=== PATIENT | male | born 1975 | race African-American/Black ===

== ENCOUNTER 2016-08-24 15:50 | Emergency (ER) | payer BC ==
[~2016-08-24] VITALS: Ht 172.7 cm; Wt 80.7 kg
[~2016-08-24 15:50] MED LIST: ASPI81TA44 PO; METF10002 PO; SITA50TA PO; no home meds
[2016-08-24] MEDS ORDERED: FAMOTIDINE 20 MG/2 ML VIAL IVP ONE (16:15)
[2016-08-24] MEDS ORDERED: IV NORMAL SALINE 1,000ML 1,000 ML IV ONE ×2 (16:15→17:00)
[2016-08-24 16:22] LABS: BASO % 1 % (0-3); EOS # 0.1 x10^3/uL (0.0-0.7); EOS % 1 % (0-3); HEMATOCRIT 48.8 % (39.0-53.0); HEMOGLOBIN 15.5 g/dL (13.0-17.5); LYMPH # 1.8 x10^3/uL (1.0-4.8); LYMPH % 33 % (24-48); MEAN CORPUSCULAR HEMOGLOBIN 24 pg (25-35); MEAN CORPUSCULAR HGB CONC 32 g/dL (31-37); MEAN CORPUSCULAR VOLUME 75 fL (79-100); MONO # 0.7 x10^3/uL (0.0-1.1); MONO % 13 % (0-9); NEUT # 2.9 x10^3uL (1.8-7.7); NEUT % 53 % (31-73); PLATELET COUNT 163 x10^3/uL (140-400); RED BLOOD COUNT 6.54 x10^6/uL (4.30-5.70); RED CELL DISTRIBUTION WIDTH 14.3 % (11.5-14.5); WHITE BLOOD COUNT 5.5 x10^3/uL (4.0-11.0)
--- NOTE | 2016-08-24 16:25 | EKG ---
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
[2016-08-24 16:35] LABS: CALCIUM 9.8 mg/dL (8.5-10.1); GFR 98.7; POTASSIUM 4.1 mmol/L (3.5-5.1); TOTAL BILIRUBIN 0.6 mg/dL (0.2-1.0); TOTAL PROTEIN 8.2 g/dL (6.4-8.2)
--- NOTE | 2016-08-24 16:35 | RAD ---
EXAM: CHEST 1 VIEW History: Chest pain, wheezing COMPARISON: 04/17/2016 TECHNIQUE: Single portable radiograph of the chest FINDINGS: The cardiac silhouette is unremarkable. The lungs are clear bilaterally. The costophrenic sulci are clear and well demarcated. IMPRESSION: No radiographic evidence of an acute cardiopulmonary process.
[2016-08-24 16:38] LABS: AMPHETAMINE/METHAMPHETAMINE NEG (NEG); BARBITURATES NEG (NEG); BENZODIAZEPINES NEG (NEG); CANNABINOIDS NEG (NEG); COCAINE NEG (NEG); METHADONE NEG (NEG); OPIATES NEG (NEG); PHENCYCLIDINE NEG (NEG)
--- NOTE | 2016-08-24 16:59 | ED.ADGEN ---
Past History Past Medical History: Diabetes Past Surgical History: No Surgical History Alcohol Use: None Drug Use: None Adult General Chief Complaint Chief Complaint epigastric pain [facility] HPI Patient is a 41-year-old -Kitt[place] male with history of diabetes and hypertension who presents with persistent epigastric pain 3 days. Patient was been evaluated I his PCP for possible reflux and was noted to have abnormal EKG which showed LVH, early re-pole with sinus tachycardia. Patient was referred to ED for continued workup. Patient reports some mild nausea and early satiety. He denies chest pain, chest tightness, radiating pain, shortness of breath or sweats. He states his upper abdominal symptoms are worse with certain meals. He is noted to be diabetic, but has been off his medications for the past 2 days due to stomach upset. Denies black stools dark tarry stools, constipation or diarrhea. No prior abdominal surgeries. Patient was recently admitted to the hospital earlier this evening for treatment of early DKA due to medical noncompliance. Patient denies drugs or routine alcohol. Review of Systems Review of Systems ROS as per HPI. Current Medications Current Medications Current Medications Medications (Trade) Dose Ordered Sig/Natalio Start Time Stop Time Status Last Admin Dose Admin Famotidine (Pepcid) 20 mg 1X ONCE 08/24/16 16:15 08/24/16 16:16 DC 08/24/16 16:15 20 MG Sodium Chloride 1,000 ml @ 1,000 mls/hr 1X ONCE 08/24/16 17:00 08/24/16 17:59 Allergies Allergies Allergies Coded Allergies Type Severity Reaction Last Updated Verified No Known Drug Allergies 08/24/16 No Physical Exam Physical Exam Constitutional: Well developed, well nourished, no acute distress, non-toxic appearance. HENT: Normocephalic, atraumatic, bilateral external ears normal, oropharynx moist, no oral exudates, nose normal. Eyes: PERRL. Neck: Normal range of motion. Cardiovascular:, Regular rhythm. Lungs & Thorax: Bilateral breath sounds clear to auscultation. Abdomen: Bowel sounds normal, soft, mid epigastric pain, tenderness. Skin: Warm, dry. Back: No tenderness, no CVA tenderness. Extremities: No tenderness. Neurologic: Alert and oriented X 3, normal motor function, normal sensory function, no focal deficits noted. Psychologic: Affect normal, judgement normal, mood normal. Current Patient Data Vital Signs Vital Signs Date Time Temp Pulse Resp B/P (MAP) Pulse Ox O2 Delivery O2 Flow Rate FiO2 08/24/16 15:57 98.4 123 18 99 Room Air Lab Results Laboratory Tests Test 08/24/16 16:10 08/24/16 16:22 White Blood Count 5.5 x10^3/uL (4.0-11.0) Red Blood Count 6.54 x10^6/uL (4.30-5.70) H Hemoglobin 15.5 g/dL (13.0-17.5) Hematocrit 48.8 % (39.0-53.0) Mean Corpuscular Volume 75 fL (79-100) L Mean Corpuscular Hemoglobin 24 pg (25-35) L Mean Corpuscular Hemoglobin Concent 32 g/dL (31-37) Red Cell Distribution Width 14.3 % (11.5-14.5) Platelet Count 163 x10^3/uL (140-400) Neutrophils (%) (Auto) 53 % (31-73) Lymphocytes (%) (Auto) 33 % (24-48) Monocytes (%) (Auto) 13 % (0-9) H Eosinophils (%) (Auto) 1 % (0-3) Basophils (%) (Auto) 1 % (0-3) Neutrophils # (Auto) 2.9 x10^3uL (1.8-7.7) Lymphocytes # (Auto) 1.8 x10^3/uL (1.0-4.8) Monocytes # (Auto) 0.7 x10^3/uL (0.0-1.1) Eosinophils # (Auto) 0.1 x10^3/uL (0.0-0.7) Basophils # (Auto) 0.0 x10^3/uL (0.0-0.2) D-Dimer (Shameka) 0.24 mg/L (0.00-0.50) Sodium Level 138 mmol/L (136-145) Potassium Level 4.1 mmol/L (3.5-5.1) Chloride Level 100 mmol/L (98-107) Carbon Dioxide Level 23 mmol/L (21-32) Anion Gap 15 (6-14) H Blood Urea Nitrogen 10 mg/dL (8-26) Creatinine 1.0 mg/dL (0.7-1.3) Estimated GFR (Cockcroft-Gault) 98.7 BUN/Creatinine Ratio 10 (6-20) Glucose Level 308 mg/dL (70-99) H Calcium Level 9.8 mg/dL (8.5-10.1) Total Bilirubin 0.6 mg/dL (0.2-1.0) Aspartate Amino Transferase (AST) 15 U/L (15-37) Alanine Aminotransferase (ALT) 28 U/L (16-63) Alkaline Phosphatase 116 U/L (46-116) Creatine Kinase 55 U/L (39-308) Troponin I Quantitative < 0.017 ng/mL (0-0.055) Total Protein 8.2 g/dL (6.4-8.2) Albumin 4.0 g/dL (3.4-5.0) Albumin/Globulin Ratio 1.0 (1.0-1.7) Lipase 105 U/L (73-393) Urine Opiates Screen Neg (NEG) Urine Methadone Screen Neg (NEG) Urine Barbiturates Neg (NEG) Urine Phencyclidine Screen Neg (NEG) Urine Amphetamine/Methamphetamine Neg (NEG) Urine Benzodiazepines Screen Neg (NEG) Urine Cocaine Screen Neg (NEG) Urine Cannabinoids Screen Neg (NEG) Urine Ethyl Alcohol Neg (NEG) EKG EKG [EKG: Sinus tach, rate 118, LVH with early re-pole pattern. No acute ST-T wave changes. QTC 459] Radiology/Procedures Radiology/Procedures [Chest x-ray: No acute cardiopulmonary disease] Course & Med Decision Making Course & Med Decision Making Pertinent Labs and Imaging studies reviewed. (See chart for details) [Nondescript abdominal pain and hyperglycemia. Patient's sinus tach on EKG likely secondary to dehydration. Troponin is negative despite 3 days of abdominal discomfort. Patient denies any exertional symptoms. Feels much improved with fluids and Pepcid in the emergency department. Admission offered her further cardiac evaluation due to multiple risk factors. She declines admission at this time due to family needs at home, but agrees to follow-up with his PCP. I think this is a reasonable plan given his relatively benign evaluation in the emergency department. Recommend patient starting an antacid and improved or better Compliance with PCP follow-up next week. He is instructed to return to the emergency department in the meantime should, should he develop new or worsening symptoms.] Final Impression Final Impression [1. Abdominal discomfort 2. Hyperglycemia] Problems: Dragon Disclaimer Dragon Disclaimer This electronic medical record was generated, in whole or in part, using a voice recognition dictation system. FLAQUITA GU DO August 24, 2016 16:59
[2016-08-24 17:33] VITALS: BP 146/102
== END 2016-08-24 17:43 | disposition home or self-care (01) ==
LOC: ER 15:50
DX: R10.13 Epigastric pain (principal); E11.65 Type 2 diabetes mellitus with hyperglycemia
CPT/HCPCS: 36415; 71010; 80053; 80305; 82550; 83690; 84484; 85027; 85379; 93005; 96361; 96374; 99285; S0028; G0481; J7030

== ENCOUNTER 2016-08-30 19:38 | Inpatient (IN) | payer BC ==
[~2016-08-30] VITALS: Ht 172.7 cm; Wt 82.4 kg
--- NOTE | 2016-08-30 19:56 | ED.ADGEN ---
Past History Past Medical History: Diabetes Past Surgical History: No Surgical History Alcohol Use: None Drug Use: None Adult General Chief Complaint Chief Complaint Nausea HPI HPI Patient is a 41 year old -Af[place] Afghan male who presents with epigastric discomfort and nausea. He states his been going on for several days and he sees primary care physician is referred him to a GI doctor. States he had an x-ray done and was here recently for elevated heart rate got IV fluids. He states yesterday felt okay but today he felt nauseated but denied any abdominal pain, chest pain shortness of breath. He states he really hasn't ate or drank anything all day today. He did take his metformin and glyburide. He's not been checking his sugars. He denies any fevers chills shortness of breath. Review of Systems Review of Systems Constitutional: Denies fever or chills [] Eyes: Denies change in visual acuity, redness, or eye pain [] HENT: Denies nasal congestion or sore throat [] Respiratory: Denies cough or shortness of breath [] Cardiovascular: No additional information not addressed in HPI [] GI: Denies abdominal pain, vomiting, bloody stools or diarrhea , positive for nausea : Denies dysuria or hematuria [] Musculoskeletal: Denies back pain or joint pain [] Integument: Denies rash or skin lesions [] Neurologic: Denies headache, focal weakness or sensory changes [] Endocrine: Denies polyuria or polydipsia [] Current Medications Current Medications Current Medications Medications (Trade) Dose Ordered Sig/Natalio Start Time Stop Time Status Last Admin Dose Admin Magnesium Sulfate 50 ml @ 25 mls/hr 1X ONCE 08/30/16 22:15 08/31/16 00:14 DC 08/30/16 21:51 25 MLS/HR Ondansetron HCl (Zofran) 4 mg PRN Q4HRS PRN 08/31/16 00:45 09/01/16 00:44 UNV Potassium Chloride (Klor-Con) 40 meq 1X ONCE 08/30/16 22:15 08/30/16 22:16 DC 08/30/16 21:51 40 MEQ Sodium Chloride 1,000 ml @ 1,000 mls/hr 1X ONCE 08/30/16 23:15 08/31/16 00:14 DC 08/30/16 23:15 1,000 MLS/HR Allergies Allergies Allergies Coded Allergies Type Severity Reaction Last Updated Verified No Known Drug Allergies 08/24/16 No Physical Exam Physical Exam Constitutional: Well developed, well nourished, no acute distress, non-toxic appearance. [] HENT: Normocephalic, atraumatic, bilateral external ears normal, oropharynx moist, no oral exudates, nose normal. [] Eyes: PERRLA, EOMI, conjunctiva normal, no discharge. [] Neck: Normal range of motion, no tenderness, supple, no stridor. [] Cardiovascular:Heart rate regular rhythm, no murmur [] Lungs & Thorax: Bilateral breath sounds clear to auscultation [] Abdomen: Bowel sounds normal, soft, no tenderness, no masses, no pulsatile masses. [] Skin: Warm, dry, no erythema, no rash. [] Back: No tenderness, no CVA tenderness. [] Extremities: No tenderness, no cyanosis, no clubbing, ROM intact, no edema. [] Neurologic: Alert and oriented X 3, normal motor function, normal sensory function, no focal deficits noted. [] Psychologic: Affect normal, judgement normal, mood normal. [] Current Patient Data Vital Signs Vital Signs Date Time Temp Pulse Resp B/P (MAP) Pulse Ox O2 Delivery O2 Flow Rate FiO2 08/30/16 22:45 109 12 137/90 (106) 100 Room Air 08/30/16 19:38 98.0 Lab Results Laboratory Tests Test 08/30/16 19:57 08/30/16 20:47 08/30/16 23:33 White Blood Count 6.4 x10^3/uL (4.0-11.0) Red Blood Count 6.30 x10^6/uL (4.30-5.70) H Hemoglobin 14.9 g/dL (13.0-17.5) Hematocrit 45.8 % (39.0-53.0) Mean Corpuscular Volume 73 fL (79-100) L Mean Corpuscular Hemoglobin 24 pg (25-35) L Mean Corpuscular Hemoglobin Concent 33 g/dL (31-37) Red Cell Distribution Width 13.6 % (11.5-14.5) Platelet Count 178 x10^3/uL (140-400) Neutrophils (%) (Auto) 53 % (31-73) Lymphocytes (%) (Auto) 34 % (24-48) Monocytes (%) (Auto) 12 % (0-9) H Eosinophils (%) (Auto) 1 % (0-3) Basophils (%) (Auto) 1 % (0-3) Neutrophils # (Auto) 3.4 x10^3uL (1.8-7.7) Lymphocytes # (Auto) 2.1 x10^3/uL (1.0-4.8) Monocytes # (Auto) 0.8 x10^3/uL (0.0-1.1) Eosinophils # (Auto) 0.1 x10^3/uL (0.0-0.7) Basophils # (Auto) 0.0 x10^3/uL (0.0-0.2) Sodium Level 137 mmol/L (136-145) Potassium Level 2.8 mmol/L (3.5-5.1) *L Chloride Level 97 mmol/L (98-107) L Carbon Dioxide Level 25 mmol/L (21-32) Anion Gap 15 (6-14) H Blood Urea Nitrogen 9 mg/dL (8-26) Creatinine 1.0 mg/dL (0.7-1.3) Estimated GFR (Cockcroft-Gault) 98.7 Glucose Level 202 mg/dL (70-99) H Calcium Level 10.0 mg/dL (8.5-10.1) Magnesium Level 1.3 mg/dL (1.8-2.4) L Total Bilirubin 0.7 mg/dL (0.2-1.0) Direct Bilirubin 0.2 mg/dL (0.0-0.2) Aspartate Amino Transferase (AST) 15 U/L (15-37) Alanine Aminotransferase (ALT) 22 U/L (16-63) Alkaline Phosphatase 93 U/L (46-116) Creatine Kinase 58 U/L (39-308) 49 U/L (39-308) Creatine Kinase MB (Mass) 1.1 ng/mL (0.0-3.6) 0.7 ng/mL (0.0-3.6) Creatine Kinase MB Relative Index 1.9 % (0-4) 1.4 % (0-4) Troponin I Quantitative < 0.017 ng/mL (0-0.055) 0.019 ng/mL (0-0.055) LT-Lqc-V-Type Natriuretic Peptide 15 pg/mL (0-124) Total Protein 7.8 g/dL (6.4-8.2) Albumin 3.8 g/dL (3.4-5.0) Lipase 147 U/L (73-393) Urine Collection Type Unknown Urine Color Straw Urine Clarity Clear Urine pH 6.0 Urine Specific [place] 1.015 Urine Protein 30 mg/dl (NEG-TRACE) Urine Glucose (UA) 100 mg/dL (NEG) Urine Ketones (Stick) >=160 mg/dL (NEG) Urine Blood Trace (NEG) Urine Nitrite Neg (NEG) Urine Bilirubin Neg (NEG) Urine Urobilinogen Dipstick 1 mg/dL (0.2 mg/dL) Urine Leukocyte Esterase Neg (NEG) Urine RBC Occ /HPF (0-2) Urine WBC 1-4 /HPF (0-4) Urine Squamous Epithelial Cells Occ /LPF Urine Transitional Epithelial Cells Occ /LPF Urine Bacteria 0 /HPF (0-FEW) Urine Mucus Slight /LPF Urine Opiates Screen Neg (NEG) Urine Methadone Screen Neg (NEG) Urine Barbiturates Neg (NEG) Urine Phencyclidine Screen Neg (NEG) Urine Amphetamine/Methamphetamine Neg (NEG) Urine Benzodiazepines Screen Neg (NEG) Urine Cocaine Screen Neg (NEG) Urine Cannabinoids Screen Neg (NEG) Urine Ethyl Alcohol Neg (NEG) EKG EKG EKG shows sinus tachycardia [address] elevations, T-wave inversions in lead 3, left axis deviation, QTC 4 and 82 ms, as interpreted by me. EKG similar to one done on August 24, 2016 Radiology/Procedures Radiology/Procedures 1 View chest x-ray did not show any focal consolidations, bony abnormalities or pneumothorax, as interpreted by me. Course & Med Decision Making Course & Med Decision Making Pertinent Labs and Imaging studies reviewed. (See chart for details) Vision arrived with tachycardia in the rates of 117's, he received 3 L of normal saline and his tachycardia has improved over has not resolved. He still having heart rates in the 102 range. He is not short of breath therefore I'm not concerned about a PE however he is having some epigastric/heartburn concerns. His first troponin was 0.17 and a repeat troponin 4 hours later was 0.19. His EKG is not concerning and similar to his previous one on August 24, 2016. His potassium was replaced with 40 mEq by mouth 1 in his magnesium was 2 g IV. He was offered admission and accepted by Dr. Kaplan. He is being admitted with interim orders written. Final Impression Final Impression Tachycardia Nausea Dehydration Diabetes type 1 Problems: Dragon Disclaimer Dragon Disclaimer This electronic medical record was generated, in whole or in part, using a voice recognition dictation system. MARY SHAHID MD August 30, 2016 19:56
[2016-08-30] MEDS ORDERED: IV NORMAL SALINE 1,000ML 1,000 ML IV SCH (20:15)
[2016-08-30 20:19] LABS: BASO % 1 % (0-3); EOS # 0.1 x10^3/uL (0.0-0.7); EOS % 1 % (0-3); HEMATOCRIT 45.8 % (39.0-53.0); HEMOGLOBIN 14.9 g/dL (13.0-17.5); LYMPH # 2.1 x10^3/uL (1.0-4.8); LYMPH % 34 % (24-48); MEAN CORPUSCULAR HEMOGLOBIN 24 pg (25-35); MEAN CORPUSCULAR HGB CONC 33 g/dL (31-37); MEAN CORPUSCULAR VOLUME 73 fL (79-100); MONO # 0.8 x10^3/uL (0.0-1.1); MONO % 12 % (0-9); NEUT # 3.4 x10^3uL (1.8-7.7); NEUT % 53 % (31-73); PLATELET COUNT 178 x10^3/uL (140-400); RED CELL DISTRIBUTION WIDTH 13.6 % (11.5-14.5); WHITE BLOOD COUNT 6.4 x10^3/uL (4.0-11.0)
[2016-08-30 20:43] LABS: ALBUMIN 3.8 g/dL (3.4-5.0); DIRECT BILIRUBIN 0.2 mg/dL (0.0-0.2); GFR 98.7; MAGNESIUM 1.3 mg/dL (1.8-2.4); TOTAL BILIRUBIN 0.7 mg/dL (0.2-1.0); TOTAL PROTEIN 7.8 g/dL (6.4-8.2)
[2016-08-30] MEDS ORDERED: ONDANSETRON PF 4 MG/2 ML VIAL. IV ONE (20:45)
[2016-08-30 20:54] LABS: POTASSIUM 2.8 mmol/L (3.5-5.1)
[2016-08-30 21:35] LABS: BILIRUBIN,URINE NEG (NEG); CLARITY,URINE CLEAR; COLOR,URINE STRAW; GLUCOSE,URINE 100 mg/dL (NEG); UROBILINOGEN,URINE 1 mg/dL (0.2 mg/dL)
[2016-08-30 21:36] LABS: BACTERIA,URINE 0 /HPF (0-FEW); NITRITE,URINE NEG (NEG); RBC,URINE OCC /HPF (0-2); SQUAMOUS EPITHELIAL CELL,UR OCC /LPF
[2016-08-30 21:57] LABS: BARBITURATES NEG (NEG); BENZODIAZEPINES NEG (NEG); CANNABINOIDS NEG (NEG); COCAINE NEG (NEG); METHADONE NEG (NEG); OPIATES NEG (NEG); PHENCYCLIDINE NEG (NEG)
[2016-08-30 21:58] LABS: AMPHETAMINE/METHAMPHETAMINE NEG (NEG)
[2016-08-30] MEDS ORDERED: IV NORMAL SALINE 1,000ML 1,000 ML IV ONE ×2 (22:15→23:15)
[2016-08-30] MEDS ORDERED: POTASSIUM CHLORIDE 20 MEQ TABLET.ER. PO ONE (22:15)
[2016-08-30] MEDS ORDERED: MAGNESIUM SULFATE 2GM 50 ML IV ONE (22:15)
--- NOTE | 2016-08-30 22:34 | EKG ---
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
[2016-08-31] MEDS ORDERED: ONDANSETRON PF 4 MG/2 ML VIAL. IV PRN (00:45)
--- NOTE | 2016-08-31 00:55 | EKG ---
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
[2016-08-31 01:19] VITALS: BP 141/92
[2016-08-31] MEDS ORDERED: GLYB5TAB3 PO (01:47)
--- NOTE | 2016-08-31 02:16 | NUR ---
The patient, ALLI PAGAN, 41 y/o, M admitted by LORAINE MCMAHON MD, was given written information regarding hospital policies, unit procedures and contact persons. Valuables were checked and left in room. States he has had nausea and epigastric discomfort for several days along with a decreased appetite. Pt has continued to take medications per usual routine. Pt denies SOA or dyspnea, chest pain, or vomiting. Has noted decreased ouput as well. Will obtain AM labs. VSS. Pt able to verbalize POC, will continue to monitor.
--- NOTE | 2016-08-31 05:34 | ACF ---
Admission Criteria Forms HYPONATREMIA; HYPERNATREMIA; HYPOKALEMIA; HYPERKALEMIA; HYPOCALCEMIA; HYPERCALCEMIA Clinical Indications for Inpatient Care (Place 'X' for any and all applicable criteria): Ongoing inpatient care may be indicated for ANY ONE of the following [G](1)(2)(3 )(5): [ ]I. Hyponatremia with ANY ONE of the following: [ ]a) Sodium less than 130 mEq/L (mmol/L) (new) (6)(22) [ ]b) Sodium less than 135 mEq/L (mmol/L) with ANY ONE of the following: [ ]i) Severe medical etiology requiring inpatient management (eg, heart failure, hypovolemia) [ ]ii) Altered mental status [ ]iii) Seizures [ ]II. Hypernatremia with ANY ONE of the following: [ ]a) Sodium greater than 155 mEq/L (mmol/L) [ ]b) Sodium greater than 150 mEq/L (mmol/L) with ANY ONE of the following: [ ] i) Altered mental status [ ]ii) Seizures [ ]iii) Severe medical etiology (eg, hypovolemia, diabetes insipidus) [ ]iv) Severe weakness [ ]v) Severe medical etiology (eg, hemolysis, infection, drug overdose) [X]III. Hypokalemia with ANY ONE of the following: [ ]a) Potassium less than 2.5 mEq/L (mmol/L) despite outpatient and emergency treatment [X]b) Potassium less than 3.0 mEq/L (mmol/L) with ANY ONE of the following: [ ]i) Weakness [X]ii) Cardiac abnormality (eg, arrhythmia, conduction disturbance) [ ]iii) Cardiac ischemia [ ]iv) Ileus [ ]v) Ongoing medical cause requiring inpatient management. ( e.g., acute renal wasting, SIADH) [ ]vi) Other severe symptoms [ ] IV. Hyperkalemia with ANY ONE of the following: [ ]a) Potassium greater than 6.5 mEq/L (mmol/L) [ ]b) Potassium greater than 5 mEq/L (mmol/L) with ANY ONE of the following: [ ]i) Severe ECG findings [H] [ ]ii) Acute worsening of renal failure (creatinine greater than 2.5 mg/dL (221 micromoles/L) or significant elevation for age and size) [ ] V. Hypocalcemia with ANY ONE of the following: [ ]a) Calcium less than 7 mg/dL (1.75 mmol/L) despite outpatient and emergency treatment(19) [ ]b) Calcium less than 8 mg/dL (2 mmol/L) with significant symptoms or findings; examples include: [ ]i) Cardiac abnormality (eg, arrhythmia or conduction disturbance) [ ]ii) Altered mental status [ ]iii) Seizures [ ]iv) Breathing difficulty [ ]v) Muscle spasms [ ]. Hypercalcemia with ANY ONE of the following: [ ]a) Calcium greater than 14 mg/dL (3.5 mmol/L) [ ]b) Calcium greater than 12 mg/dL (3 mmol/L) with ANY ONE of the following: [ ]i) Significant dehydration or hypovolemia as indicated by ANY ONE of the following(2): [ ]1. Clinically significant dehydration as indicated by ANY ONE of the following: [ ]A. Acute loss of weight from baseline (5% of body weight in adults, 9% in pediatric patients) [ ]B. Hemodynamic instability [ ]C. Acute renal failure [ ]D. Serum sodium greater than 150 mEq/L (mmol/L) [ ]2) Dehydration that is persistent indicated by ALL of the following: [ ]A. Oral rehydration therapy not tolerated or insufficient to adequately correct dehydration [ ]B. Appropriate intravenous treatment (eg, fluids ) does not readily correct dehydration ie, after 12 to 24 hours of treatment) [ ]ii) Significant symptoms or findings; examples include: [ ]1) Altered mental status [ ]2) Cardiac abnormality (eg, arrhythmia, conduction disturbance) [ ]3) Cardiac abnormality (eg, arrhythmia, conduction disturbance) The original [facility] content created by [employer] has been revised. The portions of the content which have been revised are identified through the use of italic text or in bold, and [facility] has neither reviewed nor approved the modified material. All other unmodified content is copyright [facility] [employer] Please see references footnoted in the original [facility] [employer] edition 2016 Admission Criteria Met?: Yes ASHLEY CARD August 31, 2016 05:34
--- NOTE | 2016-08-31 05:39 | NUR ---
Pt states stomach feels better. Resting comfortably throughout night, call light within reach.
[2016-08-31 05:40] VITALS: BP 133/83
--- NOTE | 2016-08-31 07:55 | RAD ---
Portable chest, 08/30/2016: History: Epigastric and chest pain Comparison is made to a study from 08/24/2016. The heart size and pulmonary vascularity are normal. No pulmonary infiltrates are seen. There is no evidence of pleural fluid. IMPRESSION: No acute cardiopulmonary abnormality is detected.
[2016-08-31] MEDS: metFORMIN 500 MG TABLET PO SCH ×2 (08:15→16:36)
[2016-08-31] MEDS: ASPIRIN 81 MG TAB.CHEW PO SCH (08:15)
[2016-08-31] MEDS: glyBURIDE 5 MG TABLET PO SCH (08:17)
[2016-08-31 08:36] LABS: BASO % 0 % (0-3); EOS # 0.1 x10^3/uL (0.0-0.7); EOS % 2 % (0-3); HEMOGLOBIN 13.7 g/dL (13.0-17.5); LYMPH # 1.6 x10^3/uL (1.0-4.8); LYMPH % 33 % (24-48); MEAN CORPUSCULAR HEMOGLOBIN 24 pg (25-35); MEAN CORPUSCULAR HGB CONC 33 g/dL (31-37); MEAN CORPUSCULAR VOLUME 72 fL (79-100); MONO # 0.6 x10^3/uL (0.0-1.1); MONO % 12 % (0-9); NEUT # 2.7 x10^3uL (1.8-7.7); NEUT % 53 % (31-73); PLATELET COUNT 145 x10^3/uL (140-400); RED BLOOD COUNT 5.81 x10^6/uL (4.30-5.70); RED CELL DISTRIBUTION WIDTH 13.8 % (11.5-14.5)
[2016-08-31 08:48] LABS: CALCIUM 8.5 mg/dL (8.5-10.1); CREATININE 0.7 mg/dL (0.7-1.3); GFR 148.9; POTASSIUM 3.2 mmol/L (3.5-5.1)
--- NOTE | 2016-08-31 09:24 | PDOC2 ---
CONSULT Date of Admission DATE: 08/31/16 TIME: 09:24 Reason for Consult: tachycardia, elevated trop Problem List Problems Medical Problems: (1) Nausea Status: Acute History of Present Illness Mr Stanton is a 41 year old male with a history of diabetes mellitus. He presented with complaints of abdominal discomfort and nausea for approximately the last week. He was noted to have tachycardia and mildly elevated troponin so consult was called. He reports complaints of abdominal fullness, nausea and loss of appetite over the last week. He reports one episode of vomiting and lightheadedness on standing yesterday. He denies chest discomfort, dyspnea , palpitations, congestive symptoms or syncope. He denies problems with functional capacity. Past Medical History diabetes mellitus type II for 13 years, history of asthma Past Surgical History none Family History: Cancer, Diabetes, Hypertension Social History non smoker, denies ETOH or illicit drug use Current Medications Home meds include: aspirin glyburide metformin Current Medications Sodium Chloride 1,000 ml @ 1,000 mls/hr Q1H IV Last administered on 08/30/16 20:05; Start 08/30/16 at 20:15; Stop 08/30/16 at 21:14; Status DC Ondansetron HCl (Zofran) 4 mg 1X ONCE IV Last administered on 08/30/16 20:05 ; Start 08/30/16 at 20:45; Stop 08/30/16 at 20:46; Status DC Sodium Chloride 1,000 ml @ 1,000 mls/hr 1X ONCE IV Last administered on 21:50; Start 08/30/16 at 22:15; Stop 08/30/16 at 23:14; Status DC Potassium Chloride (Klor-Con) 40 meq 1X ONCE PO Last administered on 21:51; Start 08/30/16 at 22:15; Stop 08/30/16 at 22:16; Status DC Magnesium Sulfate 50 ml @ 25 mls/hr 1X ONCE IV Last administered on 08/30/16 21:51; Start 08/30/16 at 22:15; Stop 08/31/16 at 00:14; Status DC Sodium Chloride 1,000 ml @ 1,000 mls/hr 1X ONCE IV Last administered on 23:15; Start 08/30/16 at 23:15; Stop 08/31/16 at 00:14; Status DC Ondansetron HCl (Zofran) 4 mg PRN Q4HRS PRN IV NAUSEA/VOMITING; Start 08/31/16 at 00:45; Stop 09/01/16 at 00:44 Aspirin (Children'S Aspirin) 81 mg DAILY PO Last administered on 08/31/16 08: 15; Start 08/31/16 at 09:00 Glyburide (Diabeta) 5 mg DAILY PO Last administered on 08/31/16 08:17; Start 08/31/16 at 09:00 Metformin HCl (Glucophage) 1,000 mg BIDWMEALS PO Last administered on 08:15; Start 08/31/16 at 08:00 Active Scripts Active Children's Aspirin (Aspirin) 81 Mg Tab.chew 81 Mg PO DAILY Reported Glyburide 5 Mg Tablet 5 Mg PO DAILY Metformin Hcl 1,000 Mg Tablet 1 Tab PO BID Allergies: Coded Allergies: No Known Drug Allergies (Unverified , 08/24/16) Review of System as per HPI or negative General: Alert, Oriented X3, Cooperative, No acute distress HEENT: Atraumatic, EOMI, Mucous membr. moist/pink, Other (no JVD/HJR or carotid bruits) Lungs: Clear to auscultation, Normal air movement Heart: Regular rate, Normal S1, Normal S2, Other (no obvious murmurs, no gallops, clicks or rubs) Abdomen: Normal bowel sounds, Soft, No tenderness Extremities: No cyanosis, No edema, Normal pulses Neuro: Normal speech, Strength at 5/5 X4 ext Psych/Mental Status: Mental status NL, Mood NL VITALS Vital Signs Date Time Temp Pulse Resp B/P (MAP) Pulse Ox O2 Delivery O2 Flow Rate FiO2 08/31/16 07:59 Room Air 08/31/16 05:40 98.3 104 16 133/83 (100) 99 Labs Laboratory Tests Test 08/30/16 19:57 08/30/16 20:47 08/30/16 23:33 08/31/16 05:36 White Blood Count 6.4 x10^3/uL (4.0-11.0) 5.0 x10^3/uL (4.0-11.0) Red Blood Count 6.30 x10^6/uL (4.30-5.70) 5.81 x10^6/uL (4.30-5.70) Hemoglobin 14.9 g/dL (13.0-17.5) 13.7 g/dL (13.0-17.5) Hematocrit 45.8 % (39.0-53.0) 42.0 % (39.0-53.0) Mean Corpuscular Volume 73 fL (79-100) 72 fL (79-100) Mean Corpuscular Hemoglobin 24 pg (25-35) 24 pg (25-35) Mean Corpuscular Hemoglobin Concent 33 g/dL (31-37) 33 g/dL (31-37) Red Cell Distribution Width 13.6 % (11.5-14.5) 13.8 % (11.5-14.5) Platelet Count 178 x10^3/uL (140-400) 145 x10^3/uL (140-400) Neutrophils (%) (Auto) 53 % (31-73) 53 % (31-73) Lymphocytes (%) (Auto) 34 % (24-48) 33 % (24-48) Monocytes (%) (Auto) 12 % (0-9) 12 % (0-9) Eosinophils (%) (Auto) 1 % (0-3) 2 % (0-3) Basophils (%) (Auto) 1 % (0-3) 0 % (0-3) Neutrophils # (Auto) 3.4 x10^3uL (1.8-7.7) 2.7 x10^3uL (1.8-7.7) Lymphocytes # (Auto) 2.1 x10^3/uL (1.0-4.8) 1.6 x10^3/uL (1.0-4.8) Monocytes # (Auto) 0.8 x10^3/uL (0.0-1.1) 0.6 x10^3/uL (0.0-1.1) Eosinophils # (Auto) 0.1 x10^3/uL (0.0-0.7) 0.1 x10^3/uL (0.0-0.7) Basophils # (Auto) 0.0 x10^3/uL (0.0-0.2) 0.0 x10^3/uL (0.0-0.2) Sodium Level 137 mmol/L (136-145) 139 mmol/L (136-145) Potassium Level 2.8 mmol/L (3.5-5.1) 3.2 mmol/L (3.5-5.1) Chloride Level 97 mmol/L (98-107) 104 mmol/L (98-107) Carbon Dioxide Level 25 mmol/L (21-32) 26 mmol/L (21-32) Anion Gap 15 (6-14) 9 (6-14) Blood Urea Nitrogen 9 mg/dL (8-26) 6 mg/dL (8-26) Creatinine 1.0 mg/dL (0.7-1.3) 0.7 mg/dL (0.7-1.3) Estimated GFR (Cockcroft-Gault) 98.7 148.9 Glucose Level 202 mg/dL (70-99) 184 mg/dL (70-99) Calcium Level 10.0 mg/dL (8.5-10.1) 8.5 mg/dL (8.5-10.1) Magnesium Level 1.3 mg/dL (1.8-2.4) 1.6 mg/dL (1.8-2.4) Total Bilirubin 0.7 mg/dL (0.2-1.0) Direct Bilirubin 0.2 mg/dL (0.0-0.2) Aspartate Amino Transf (AST/SGOT) 15 U/L (15-37) Alanine Aminotransferase (ALT/SGPT) 22 U/L (16-63) Alkaline Phosphatase 93 U/L (46-116) Creatine Kinase 58 U/L (39-308) 49 U/L (39-308) Creatine Kinase MB (Mass) 1.1 ng/mL (0.0-3.6) 0.7 ng/mL (0.0-3.6) Creatine Kinase MB Relative Index 1.9 % (0-4) 1.4 % (0-4) Troponin I Quantitative < 0.017 ng/mL (0-0.055) 0.019 ng/mL (0-0.055) 0.023 ng/mL (0-0.055) EW-Puu-P-Type Natriuretic Peptide 15 pg/mL (0-124) Total Protein 7.8 g/dL (6.4-8.2) Albumin 3.8 g/dL (3.4-5.0) Lipase 147 U/L (73-393) Urine Collection Type Unknown Urine Color Straw Urine Clarity Clear Urine pH 6.0 Urine Specific Telephone 1.015 Urine Protein 30 mg/dl (NEG-TRACE) Urine Glucose (UA) 100 mg/dL (NEG) Urine Ketones (Stick) >=160 mg/dL (NEG) Urine Blood Trace (NEG) Urine Nitrite Neg (NEG) Urine Bilirubin Neg (NEG) Urine Urobilinogen Dipstick 1 mg/dL (0.2 mg/dL) Urine Leukocyte Esterase Neg (NEG) Urine RBC Occ /HPF (0-2) Urine WBC 1-4 /HPF (0-4) Urine Squamous Epithelial Cells Occ /LPF Urine Transitional Epithelial Cells Occ /LPF Urine Bacteria 0 /HPF (0-FEW) Urine Mucus Slight /LPF Urine Opiates Screen Neg (NEG) Urine Methadone Screen Neg (NEG) Urine Barbiturates Neg (NEG) Urine Phencyclidine Screen Neg (NEG) Urine Amphetamine/Methamphetamine Neg (NEG) Urine Benzodiazepines Screen Neg (NEG) Urine Cocaine Screen Neg (NEG) Urine Cannabinoids Screen Neg (NEG) Urine Ethyl Alcohol Neg (NEG) Images EKG - sinus tachycardia without acute ischemic changes CXR - no acute abnormalities Assessment/Plan 1. elevated troponin - remains indeterminate, check echo and consider outpatient stress testing 2. tachycardia - reactive, likely secondary to dehydration, improved 3. hypokalemia/hypomagnesemia - replace 4. abdominal discomfort/ nausea - per PCP 5. diabetes mellitus - per PCP 6. unk lipid status - check lipids Problems: ELENA STOCKTON [employer]PL[employer] August 31, 2016 09:24
[2016-08-31] MEDS ORDERED: MAGNESIUM SULFATE 2GM 50 ML IV ONE (09:45)
[2016-08-31] MEDS ORDERED: POTASSIUM CHLORIDE 20 MEQ TABLET.ER. PO ONE (09:45)
[2016-08-31 11:30] VITALS: BP 126/77
--- NOTE | 2016-08-31 12:33 | HP ---
ADMIT DATE: 08/31/2016 HISTORY OF PRESENT ILLNESS: A 41-year-old gentleman has a history of diabetes, apparently came in through the Emergency Room, been having problems with abdominal pain and nausea for the last week; however, he was also noted to have some sinus tachycardia, mildly elevated troponins. He was admitted to the hospital for rule out CO protocol. He denies chest discomfort at the present time. He reports complaints of abdominal fullness, nausea and loss of appetite over the last week; however, the patient obviously is a poorly controlled diabetic and continue to be monitored there and be admitted for rule out CO protocol as well as sinus tachycardia. MEDICATIONS: Glyburide 5 mg daily, metformin 1000 mg b.i.d. The patient takes aspirin 81 mg daily. ALLERGIES: The patient has no known allergies. FAMILY HISTORY: Positive for hypertension and diabetes in the family. SOCIAL HISTORY: The patient denies smoking, alcohol or drug use. REVIEW OF SYSTEMS: The patient denies any headaches, vision change, blurred vision, double vision. Denies chest pain, shortness breath. Does have abdominal pain primarily in the epigastric area. No problems with bowels or bladder. PHYSICAL EXAMINATION: GENERAL: Pleasant -Swazi gentleman, in no apparent distress. VITAL SIGNS: Blood pressure 130/90, respiratory rate 14, pulse 106, pulse has been as high as 125 when he first came in, now he is afebrile, oxygen saturation . HEENT: The patient's head was atraumatic, normocephalic. Eyes: PERRLA without jaundice. Mouth and throat were normal. CARDIOVASCULAR: Tachycardic. ABDOMEN: Soft, nontender except in the epigastric area. No rebound or guarding. Positive bowel sounds. No hepatosplenomegaly noted. EXTREMITIES: No clubbing, cyanosis or edema. NEUROLOGIC: The patient was alert and oriented x 3. LABORATORY DATA: Basically unremarkable. The patient's potassium was low at 2.8. Additional potassium is up in the 3 range now. Blood sugar 202. Magnesium was also low at 1.3. Otherwise, the patient will be given additional potassium and magnesium. IMPRESSION: Sinus tachycardia with elevated troponin, unknown etiology there. Continue to monitor the patient and currently make further evaluation on him, type 2 diabetes risk factor, hypokalemia and hypomagnesemia. PLAN: As above, continue to monitor the patient and currently make further evaluation on him as indicated. LORAINE MCMAHON MD DR: LELO/santo JOB#: [id number] / [id number]
--- NOTE | 2016-08-31 15:38 | CARD ---
APPROVED REPORT EXAM: Two-dimensional and M-mode echocardiogram with Doppler and color Doppler. Other Information Quality : GoodHR: 117bpm Rhythm : Tachycardia INDICATION Tachycardia, Elevated troponins 2D DIMENSIONS RVDd2.9 (2.9-3.5cm)Left Atrium(2D)3.2 (1.6-4.0cm) IVSd1.3 (0.7-1.1cm)Aortic Root(2D)3.1 (2.0-3.7cm) LVDd4.0 (3.9-5.9cm)LVOT Diameter2.3 (1.8-2.4cm) PWd1.3 (0.7-1.1cm)LVDs2.5 (2.5-4.0cm) FS (%) 39.3 %SV48.1 ml LVEF(%)70.4 (>50%) Aortic Valve AoV Peak Mohinder.129.3cm/sAoV VTI21.2cm AO Peak GR.6.7mmHgLVOT Peak Mohinder.123.9cm/s LVOT VTI 23.02cmAO Mean GR.4mmHg VEENA (VMAX)4.18ug1OGS (VTI)4.70cm2 Mitral Valve MV E Ugbhkqdc39.5cm/sMV E Peak Gr.3mmHg MV DECEL [id number] A Eqkiepur73.9cm/s MV E Mean Gr.1mmHgE/A Ratio0.9 MV A [id number] Pulmonary Valve PV Peak Jdvxndzb560.7cm/sPV Peak Grad.5mmHg Pulmonary Vein S1 Gpdakqjk36.2cm/sD2 Oewhaocu45.6cm/s LEFT VENTRICLE The left ventricle is normal size. There is borderline to mild concentric left ventricular hypertroph y. The left ventricular systolic function is normal. The Ejection Fraction is 65-70%. There is normal LV segmental wall motion. Transmitral Doppler flow pattern is Grade I-abnormal relaxation pattern. RIGHT VENTRICLE The right ventricle is normal size. There is normal right ventricular wall thickness. The right ventr icular systolic function is normal. ATRIA The left atrium size is normal. The right atrium size is normal. The interatrial septum is intact wit h no evidence for an atrial septal defect or patent foramen ovale as noted on 2-D or Doppler imaging. AORTIC VALVE The aortic valve is normal in structure and function. Doppler and Color Flow revealed no significant aortic regurgitation. There is no significant aortic valvular stenosis. MITRAL VALVE The mitral valve is normal in structure and function. There is no evidence of mitral valve prolapse. There is no mitral valve stenosis. Doppler and Color Flow revealed no mitral valve regurgitation note d. TRICUSPID VALVE Doppler and Color Flow revealed no tricuspid valve regurgitation noted. There is no pulmonary hyperte nsion. PULMONIC VALVE The pulmonary valve is normal in structure and function. Doppler and Color Flow revealed no pulmonic valvular regurgitation. There is no pulmonic valvular stenosis. GREAT VESSELS The aortic root is normal in size. The ascending aorta is normal in size. The pulmonary artery is nor mal. The IVC is normal in size and collapses >50% with inspiration. PERICARDIAL EFFUSION There is no evidence of significant pericardial effusion. Critical Notification Critical Value: No <Conclusion> The left ventricular systolic function is normal. The Ejection Fraction is 65-70%. There is normal LV segmental wall motion. There is no evidence of significant pericardial effusion.
[2016-08-31 16:09] VITALS: BP 136/94
[2016-08-31] MEDS ORDERED: IV NORMAL SALINE 1,000ML 1,000 ML IV SCH (16:15)
[2016-08-31] MEDS ORDERED: IV NORMAL SALINE 1,000ML 1,000 ML IV ONE (16:30)
[2016-08-31 19:47] VITALS: BP 137/87
[2016-08-31 21:30] VITALS: BP 128/92
[2016-09-01 05:39] VITALS: BP 136/86
[2016-09-01 06:04] LABS: BASO % 0 % (0-3); EOS # 0.1 x10^3/uL (0.0-0.7); EOS % 3 % (0-3); HEMOGLOBIN 12.7 g/dL (13.0-17.5); LYMPH # 1.7 x10^3/uL (1.0-4.8); LYMPH % 40 % (24-48); MEAN CORPUSCULAR HEMOGLOBIN 24 pg (25-35); MEAN CORPUSCULAR HGB CONC 33 g/dL (31-37); MEAN CORPUSCULAR VOLUME 73 fL (79-100); MONO # 0.5 x10^3/uL (0.0-1.1); MONO % 12 % (0-9); NEUT # 1.9 x10^3uL (1.8-7.7); NEUT % 46 % (31-73); PLATELET COUNT 142 x10^3/uL (140-400); RED BLOOD COUNT 5.37 x10^6/uL (4.30-5.70); RED CELL DISTRIBUTION WIDTH 13.8 % (11.5-14.5); WHITE BLOOD COUNT 4.2 x10^3/uL (4.0-11.0)
[2016-09-01 06:09] LABS: HEMOGLOBIN A1C 13.9 % (4.8-5.6)
[2016-09-01 07:15] LABS: ALBUMIN 2.9 g/dL (3.4-5.0); ALBUMIN/GLOBULIN RATIO 0.9 (1.0-1.7); CALCIUM 8.4 mg/dL (8.5-10.1); CREATININE 0.6 mg/dL (0.7-1.3); GFR 177.9; POTASSIUM 3.2 mmol/L (3.5-5.1); TOTAL BILIRUBIN 0.3 mg/dL (0.2-1.0); TOTAL PROTEIN 6.3 g/dL (6.4-8.2)
[2016-09-01] MEDS ORDERED: POTASSIUM CHLORIDE 20 MEQ TABLET.ER. PO SCH (08:00)
[2016-09-01] MEDS: metFORMIN 500 MG TABLET PO SCH (08:16)
[2016-09-01] MEDS: ASPIRIN 81 MG TAB.CHEW PO SCH (08:17)
[2016-09-01] MEDS: glyBURIDE 5 MG TABLET PO SCH (08:17)
--- NOTE | 2016-09-01 09:50 | PDOC ---
PROGRESS NOTES Diagnosis Problem Problems Medical Problems: (1) Nausea Status: Acute Assessment Problems Medical Problems: (1) Nausea Status: Acute 1. elevated troponin - remains indeterminate, Normal LVEF and wall motion by echo. OP stress testing. 2. tachycardia - reactive, likely secondary to dehydration, improved 3. hypokalemia/hypomagnesemia - replaced 4. abdominal discomfort/ nausea - per PCP 5. diabetes mellitus - per PCP 6. unk lipid status - elevated Tgs secondary to diabetes, otherwise controlled. OP MPI and 4 week follow up. Problems: Subjective feeling better, "ready to go home", no chest pain, dyspnea or palpitations Objective Vital Signs Date Time Temp Pulse Resp B/P (MAP) Pulse Ox O2 Delivery O2 Flow Rate FiO2 09/01/16 07:49 Room Air 09/01/16 05:39 98.0 85 16 136/86 (103) 98 Intake and Output 09/01/16 07:00 Intake Total 1840 ml Balance 1840 ml Intake Oral 840 ml IV Total 1000 ml # Voids 8 Abdomen: Normal bowel sounds, Soft, No tenderness Heart: Regular rate, Normal S1, Normal S2, No murmurs, Other (no gallops, clicks or rubs) Extremities: No cyanosis, Normal pulses General: Alert, Oriented X3, Cooperative, No acute distress Lungs: Clear to auscultation, Normal air movement Neuro: Normal speech, Strength at 5/5 X4 ext Psych/Mental Status: Mental status NL, Mood NL Review of Relevant I have reviewed the following items jerardo (where applicable) has been applied. Labs Laboratory Tests Test 08/30/16 19:57 08/30/16 20:47 08/30/16 23:33 08/31/16 05:36 White Blood Count 6.4 x10^3/uL (4.0-11.0) 5.0 x10^3/uL (4.0-11.0) Red Blood Count 6.30 x10^6/uL (4.30-5.70) 5.81 x10^6/uL (4.30-5.70) Hemoglobin 14.9 g/dL (13.0-17.5) 13.7 g/dL (13.0-17.5) Hematocrit 45.8 % (39.0-53.0) 42.0 % (39.0-53.0) Mean Corpuscular Volume 73 fL (79-100) 72 fL (79-100) Mean Corpuscular Hemoglobin 24 pg (25-35) 24 pg (25-35) Mean Corpuscular Hemoglobin Concent 33 g/dL (31-37) 33 g/dL (31-37) Red Cell Distribution Width 13.6 % (11.5-14.5) 13.8 % (11.5-14.5) Platelet Count 178 x10^3/uL (140-400) 145 x10^3/uL (140-400) Neutrophils (%) (Auto) 53 % (31-73) 53 % (31-73) Lymphocytes (%) (Auto) 34 % (24-48) 33 % (24-48) Monocytes (%) (Auto) 12 % (0-9) 12 % (0-9) Eosinophils (%) (Auto) 1 % (0-3) 2 % (0-3) Basophils (%) (Auto) 1 % (0-3) 0 % (0-3) Neutrophils # (Auto) 3.4 x10^3uL (1.8-7.7) 2.7 x10^3uL (1.8-7.7) Lymphocytes # (Auto) 2.1 x10^3/uL (1.0-4.8) 1.6 x10^3/uL (1.0-4.8) Monocytes # (Auto) 0.8 x10^3/uL (0.0-1.1) 0.6 x10^3/uL (0.0-1.1) Eosinophils # (Auto) 0.1 x10^3/uL (0.0-0.7) 0.1 x10^3/uL (0.0-0.7) Basophils # (Auto) 0.0 x10^3/uL (0.0-0.2) 0.0 x10^3/uL (0.0-0.2) Sodium Level 137 mmol/L (136-145) 139 mmol/L (136-145) Potassium Level 2.8 mmol/L (3.5-5.1) 3.2 mmol/L (3.5-5.1) Chloride Level 97 mmol/L (98-107) 104 mmol/L (98-107) Carbon Dioxide Level 25 mmol/L (21-32) 26 mmol/L (21-32) Anion Gap 15 (6-14) 9 (6-14) Blood Urea Nitrogen 9 mg/dL (8-26) 6 mg/dL (8-26) Creatinine 1.0 mg/dL (0.7-1.3) 0.7 mg/dL (0.7-1.3) Estimated GFR (Cockcroft-Gault) 98.7 148.9 Glucose Level 202 mg/dL (70-99) 184 mg/dL (70-99) Calcium Level 10.0 mg/dL (8.5-10.1) 8.5 mg/dL (8.5-10.1) Magnesium Level 1.3 mg/dL (1.8-2.4) 1.6 mg/dL (1.8-2.4) Total Bilirubin 0.7 mg/dL (0.2-1.0) Direct Bilirubin 0.2 mg/dL (0.0-0.2) Aspartate Amino Transf (AST/SGOT) 15 U/L (15-37) Alanine Aminotransferase (ALT/SGPT) 22 U/L (16-63) Alkaline Phosphatase 93 U/L (46-116) Creatine Kinase 58 U/L (39-308) 49 U/L (39-308) Creatine Kinase MB (Mass) 1.1 ng/mL (0.0-3.6) 0.7 ng/mL (0.0-3.6) Creatine Kinase MB Relative Index 1.9 % (0-4) 1.4 % (0-4) Troponin I Quantitative < 0.017 ng/mL (0-0.055) 0.019 ng/mL (0-0.055) 0.023 ng/mL (0-0.055) EL-Sfy-R-Type Natriuretic Peptide 15 pg/mL (0-124) Total Protein 7.8 g/dL (6.4-8.2) Albumin 3.8 g/dL (3.4-5.0) Lipase 147 U/L (73-393) Thyroid Stimulating Hormone (TSH) 0.936 uIU/mL (0.358-3.740) Urine Collection Type Unknown Urine Color Straw Urine Clarity Clear Urine pH 6.0 Urine Specific [place] 1.015 Urine Protein 30 mg/dl (NEG-TRACE) Urine Glucose (UA) 100 mg/dL (NEG) Urine Ketones (Stick) >=160 mg/dL (NEG) Urine Blood Trace (NEG) Urine Nitrite Neg (NEG) Urine Bilirubin Neg (NEG) Urine Urobilinogen Dipstick 1 mg/dL (0.2 mg/dL) Urine Leukocyte Esterase Neg (NEG) Urine RBC Occ /HPF (0-2) Urine WBC 1-4 /HPF (0-4) Urine Squamous Epithelial Cells Occ /LPF Urine Transitional Epithelial Cells Occ /LPF Urine Bacteria 0 /HPF (0-FEW) Urine Mucus Slight /LPF Urine Opiates Screen Neg (NEG) Urine Methadone Screen Neg (NEG) Urine Barbiturates Neg (NEG) Urine Phencyclidine Screen Neg (NEG) Urine Amphetamine/Methamphetamine Neg (NEG) Urine Benzodiazepines Screen Neg (NEG) Urine Cocaine Screen Neg (NEG) Urine Cannabinoids Screen Neg (NEG) Urine Ethyl Alcohol Neg (NEG) Hemoglobin A1c 13.9 % (4.8-5.6) Triglycerides Level 178 mg/dL (0-150) Cholesterol Level 142 mg/dL (0-200) LDL Cholesterol, Calculated 78 mg/dL (0-100) VLDL Cholesterol, Calculated 35 mg/dL (0-40) Non-HDL Cholesterol Calculated 113 mg/dL (0-129) HDL Cholesterol 29 mg/dL (40-60) Cholesterol/HDL Ratio 4.0 Test 08/31/16 07:30 08/31/16 11:13 08/31/16 11:32 08/31/16 16:23 Nasal Screen MRSA (PCR) Negative (Negative) Glucose (Fingerstick) 230 mg/dL (70-99) 117 mg/dL (70-99) Troponin I Quantitative < 0.017 ng/mL (0-0.055) Test 09/01/16 05:35 09/01/16 07:23 White Blood Count 4.2 x10^3/uL (4.0-11.0) Red Blood Count 5.37 x10^6/uL (4.30-5.70) Hemoglobin 12.7 g/dL (13.0-17.5) Hematocrit 39.0 % (39.0-53.0) Mean Corpuscular Volume 73 fL (79-100) Mean Corpuscular Hemoglobin 24 pg (25-35) Mean Corpuscular Hemoglobin Concent 33 g/dL (31-37) Red Cell Distribution Width 13.8 % (11.5-14.5) Platelet Count 142 x10^3/uL (140-400) Neutrophils (%) (Auto) 46 % (31-73) Lymphocytes (%) (Auto) 40 % (24-48) Monocytes (%) (Auto) 12 % (0-9) Eosinophils (%) (Auto) 3 % (0-3) Basophils (%) (Auto) 0 % (0-3) Neutrophils # (Auto) 1.9 x10^3uL (1.8-7.7) Lymphocytes # (Auto) 1.7 x10^3/uL (1.0-4.8) Monocytes # (Auto) 0.5 x10^3/uL (0.0-1.1) Eosinophils # (Auto) 0.1 x10^3/uL (0.0-0.7) Basophils # (Auto) 0.0 x10^3/uL (0.0-0.2) Sodium Level 140 mmol/L (136-145) Potassium Level 3.2 mmol/L (3.5-5.1) Chloride Level 105 mmol/L (98-107) Carbon Dioxide Level 25 mmol/L (21-32) Anion Gap 10 (6-14) Blood Urea Nitrogen 6 mg/dL (8-26) Creatinine 0.6 mg/dL (0.7-1.3) Estimated GFR (Cockcroft-Gault) 177.9 BUN/Creatinine Ratio 10 (6-20) Glucose Level 117 mg/dL (70-99) Calcium Level 8.4 mg/dL (8.5-10.1) Magnesium Level 1.8 mg/dL (1.8-2.4) Total Bilirubin 0.3 mg/dL (0.2-1.0) Aspartate Amino Transf (AST/SGOT) 13 U/L (15-37) Alanine Aminotransferase (ALT/SGPT) 17 U/L (16-63) Alkaline Phosphatase 69 U/L (46-116) Total Protein 6.3 g/dL (6.4-8.2) Albumin 2.9 g/dL (3.4-5.0) Albumin/Globulin Ratio 0.9 (1.0-1.7) Glucose (Fingerstick) 121 mg/dL (70-99) Medications Current Medications Sodium Chloride 1,000 ml @ 1,000 mls/hr Q1H IV Last administered on 08/30/16 20:05; Start 08/30/16 at 20:15; Stop 08/30/16 at 21:14; Status DC Ondansetron HCl (Zofran) 4 mg 1X ONCE IV Last administered on 08/30/16 20:05 ; Start 08/30/16 at 20:45; Stop 08/30/16 at 20:46; Status DC Sodium Chloride 1,000 ml @ 1,000 mls/hr 1X ONCE IV Last administered on 21:50; Start 08/30/16 at 22:15; Stop 08/30/16 at 23:14; Status DC Potassium Chloride (Klor-Con) 40 meq 1X ONCE PO Last administered on 21:51; Start 08/30/16 at 22:15; Stop 08/30/16 at 22:16; Status DC Magnesium Sulfate 50 ml @ 25 mls/hr 1X ONCE IV Last administered on 08/30/16 21:51; Start 08/30/16 at 22:15; Stop 08/31/16 at 00:14; Status DC Sodium Chloride 1,000 ml @ 1,000 mls/hr 1X ONCE IV Last administered on 23:15; Start 08/30/16 at 23:15; Stop 08/31/16 at 00:14; Status DC Ondansetron HCl (Zofran) 4 mg PRN Q4HRS PRN IV NAUSEA/VOMITING; Start 08/31/16 at 00:45; Stop 09/01/16 at 00:44; Status DC Aspirin (Children'S Aspirin) 81 mg DAILY PO Last administered on 09/01/16 08: 17; Start 08/31/16 at 09:00 Glyburide (Diabeta) 5 mg DAILY PO Last administered on 09/01/16 08:17; Start 08/31/16 at 09:00 Metformin HCl (Glucophage) 1,000 mg BIDWMEALS PO Last administered on 08:16; Start 08/31/16 at 08:00 Potassium Chloride (Klor-Con) 20 meq 1X ONCE PO Last administered on 09:45; Start 08/31/16 at 09:45; Stop 08/31/16 at 09:46; Status DC Magnesium Sulfate 50 ml @ 25 mls/hr 1X ONCE IV Last administered on 08/31/16 09:46; Start 08/31/16 at 09:45; Stop 08/31/16 at 11:44; Status DC Potassium Chloride (Klor-Con) 20 meq DAILYWBKFT PO Last administered on 08:17; Start 09/01/16 at 08:00 Sodium Chloride 1,000 ml @ 150 mls/hr Q6H40M IV ; Start 08/31/16 at 16:15; Stop 08/31/16 at 16:17; Status DC Sodium Chloride 1,000 ml @ 150 mls/hr Q6H40M ONCE IV Last administered on 08/31 16:36; Start 08/31/16 at 16:30; Stop 08/31/16 at 23:09; Status DC Active Scripts Active Children's Aspirin (Aspirin) 81 Mg Tab.chew 81 Mg PO DAILY Reported Glyburide 5 Mg Tablet 5 Mg PO DAILY Metformin Hcl 1,000 Mg Tablet 1 Tab PO BID Vitals/I & O Vital Sign - Last 24 Hours 08/31/16 08/31/16 08/31/16 08/31/16 11:30 16:09 19:47 20:00 Temp 98.4 98.0 Pulse 97 96 98 Resp 18 18 16 B/P (MAP) 126/77 (93) 136/94 (108) 137/87 (104) Pulse Ox 95 99 98 O2 Delivery Room Air Room Air Room Air Room Air 08/31/16 09/01/16 09/01/16 09/01/16 21:30 03:00 05:39 07:49 Temp 98.0 Pulse 96 82 85 Resp 17 13 16 B/P (MAP) 128/92 (104) 136/86 (103) Pulse Ox 97 98 O2 Delivery Room Air Room Air Room Air Room Air Intake and Output 08/31/16 08/31/16 09/01/16 15:00 23:00 07:00 Intake Total 480 ml 360 ml 1000 ml Balance 480 ml 360 ml 1000 ml ELENA STOCKTON [employer]PER[employer] September 01, 2016 09:50
[2016-09-01] MEDS ORDERED: POTA20TA4 PO (10:37)
--- NOTE | 2016-09-01 13:18 | NUR ---
Discharge Note: [facility] Discharge instructions and discharge home medications reviewed with Patient and a copy given. All questions have been answered and understanding verbalized. The following instructions and handouts were given: MEDICATIONS, EDUCATIONAL HANDOUTS, AND FOLLOW UP INSTRUCTIONS, INCLUDING FOLLOW UP APPOINTMENTS. Discontinued lines and drains: PERIPHERAL IV DISCONTINUED WITH NO COMPLICATIONS Patient discharged to HOME via AMBULATION.
== END 2016-09-01 13:20 | disposition home or self-care (01) | DRG 74 ==
LOC: ER 19:38 → ICU 08-31 00:41 → OBSVTOIN 08-31 08:22
PROVIDERS: ADMIT Family Medicine; ATTEND Family Medicine
DX: E11.43 Type 2 diabetes mellitus with diabetic autonomic (poly)neuropathy (principal); R00.0 Tachycardia, unspecified; E83.42 Hypomagnesemia; E87.6 Hypokalemia; E86.0 Dehydration; J45.909 Unspecified asthma, uncomplicated; E11.9 Type 2 diabetes mellitus without complications; R79.89 Other specified abnormal findings of blood chemistry; Z83.3 Family history of diabetes mellitus; Z82.49 Family history of ischemic heart disease and other diseases of the circulatory system; Z80.9 Family history of malignant neoplasm, unspecified; Z79.82 Long term (current) use of aspirin; Z79.84 Long term (current) use of oral hypoglycemic drugs; K31.84 Gastroparesis
CPT/HCPCS: 36415; 71010; 80048; 80053; 80061; 80076; 81001; 82553; 82947; 83036; 83690; 83735; 83880; 84443; 84484; 85027; 87641; 93005; 93306; 96361; 96365; 96366; 96375; G0378; G0379; G0481; J2405; J3475; 99285-25; J7030

== ENCOUNTER → 2016-10-06 | Outpatient (CLI) | payer BC ==
[~2016-10-06] MED LIST changes: +GLYB5TAB3 PO; +IOHEXOL 240 MG/ML 50ML VIAL. ONE; +POTA20TA4 PO
--- NOTE | 2016-10-06 09:40 | RAD ---
Indication: Weight loss. Axial imaging through the abdomen and pelvis was performed without contrast. No prior studies are available for comparison. The lung bases are clear. The liver and gallbladder are unremarkable. The pancreas and spleen are unremarkable. No adrenal mass is detected. The kidneys are unremarkable. The aorta is nonaneurysmal. No central retroperitoneal or mesenteric lymphadenopathy is identified. The small and large bowel loops appear to be normal caliber. Note is made of a fat-containing umbilical hernia. The appendix is unremarkable. There is no free fluid. The bladder is decompressed but does show some generalized wall thickening, indeterminate. The prostate is unremarkable. Impression: Essentially unremarkable noncontrast CT of the abdomen and pelvis. There is some generalized bladder wall thickening, which could be due to incomplete distention. Other etiologies cannot be excluded. Note is also made of a small fat-containing umbilical hernia. PQRS Compliance Statement: One or more of the following individualized dose reduction techniques were utilized for this examination: 1. Automated exposure control 2. Adjustment of the mA and/or kV according to patient size 3. Use of iterative reconstruction technique
== END | disposition home or self-care (01) ==
LOC: CT 08:00
PROVIDERS: ATTEND Family Medicine
DX: I49.5 Sick sinus syndrome (principal); E11.65 Type 2 diabetes mellitus with hyperglycemia; C18.6 Malignant neoplasm of descending colon; K42.9 Umbilical hernia without obstruction or gangrene; K31.84 Gastroparesis; G47.01 Insomnia due to medical condition; F06.31 Mood disorder due to known physiological condition with depressive features; R63.4 Abnormal weight loss
CPT/HCPCS: 74176; Q9966

== ENCOUNTER 2018-03-29 17:01 | Emergency (ER) | payer BC ==
[~2018-03-29 17:01] MED LIST changes: -ASPI81TA44 PO; +ASPI81TA59 PO; -IOHEXOL 240 MG/ML 50ML VIAL. ONE; -METF10002 PO; +METF10007 PO
--- NOTE | 2018-03-29 17:27 | PHYS DOC ---
Past History Past Medical History: Diabetes, GERD Past Surgical History: No Surgical History Alcohol Use: None Drug Use: None Adult General Chief Complaint Chief Complaint: SHORTNESS OF BREATH [facility] HPI 42-year-old male presents with tachycardia. Patient states that his heart rate is been over 100 all day. He has had a mild cough that is nonproductive. It is intermittent. The patient thinks he may be dehydrated. He had an episode like this a year ago and no specific diagnosis was found. He followed up with cardiology which found no cardiac dysfunction. Today the patient states he has been eating and drinking but maybe was not enough fluids. He has had some shortness of breath. He had a 20 minute episode of left-sided chest pain this morning that is completely resolved. He denies headache, fever or chills. He denies dysuria or urinary frequency. Review of Systems Review of Systems Constitutional: Denies fever or chills [] Eyes: Denies change in visual acuity, redness, or eye pain [] HENT: Denies nasal congestion or sore throat [] Respiratory: cough and mild shortness of breath [] Cardiovascular: No additional information not addressed in HPI [] GI: Denies abdominal pain, nausea, vomiting, bloody stools or diarrhea [] : Denies dysuria or hematuria [] Musculoskeletal: Denies back pain or joint pain [] Integument: Denies rash or skin lesions [] Neurologic: Denies headache, focal weakness or sensory changes [] Endocrine: Denies polyuria or polydipsia [] All other systems were reviewed and found to be within normal limits, except as documented in this note. Allergies Allergies Allergies Coded Allergies Type Severity Reaction Last Updated Verified No Known Drug Allergies 08/24/16 No Physical Exam Physical Exam Constitutional: Well developed, well nourished, no acute distress, non-toxic appearance. [] HENT: Normocephalic, atraumatic, bilateral external ears normal, oropharynx moist, no oral exudates, nose normal. [] Eyes: PERRLA, EOMI, conjunctiva normal, no discharge. [] Neck: Normal range of motion, no tenderness, supple, no stridor. [] Cardiovascular:Heart rate 108, regular rhythm, no murmur [] Lungs & Thorax: Bilateral breath sounds clear to auscultation [] Abdomen: Bowel sounds normal, soft, no tenderness, no masses, no pulsatile masses. [] Skin: Warm, dry, no erythema, no rash. [] Back: No tenderness, no CVA tenderness. [] Extremities: No tenderness, no cyanosis, no clubbing, ROM intact, no edema. [] Neurologic: Alert and oriented X 3, normal motor function, normal sensory function, no focal deficits noted. [] Psychologic: Affect normal, judgement normal, mood normal. [] EKG EKG Sinus rhythm, rate 100, leftward axis, no ST elevations or depressions.[] Radiology/Procedures Radiology/Procedures [] Impressions: Preliminary interpretation: Heart size within normal limits, no pneumothorax or focal consolidation. Course & Med Decision Making Course & Med Decision Making Pertinent Labs and Imaging studies reviewed. (See chart for details) Patient's chest x-ray is unremarkable. CBC and CMP are unremarkable. Urinalysis is pending. His EKG is unremarkable. I'm signing the patient out to Dr. Henderson at 1800. [] Dragon Disclaimer Dragon Disclaimer This electronic medical record was generated, in whole or in part, using a voice recognition dictation system. Departure Departure: Referrals: LORAINE MCMAHON MD (PCP) FLAQUITA YOU DO Mar 29, 2018 17:27
[2018-03-29] MEDS ORDERED: IV NORMAL SALINE 1,000ML 1,000 ML IV ONE (17:30)
[2018-03-29 17:35] LABS: BASO % 1 % (0-3); EOS # 0.1 x10^3/uL (0.0-0.7); EOS % 2 % (0-3); HEMATOCRIT 45.4 % (39.0-53.0); HEMOGLOBIN 14.6 g/dL (13.0-17.5); LYMPH # 1.6 x10^3/uL (1.0-4.8); LYMPH % 31 % (24-48); MEAN CORPUSCULAR HEMOGLOBIN 24 pg (25-35); MEAN CORPUSCULAR HGB CONC 32 g/dL (31-37); MEAN CORPUSCULAR VOLUME 75 fL (79-100); MONO # 0.5 x10^3/uL (0.0-1.1); MONO % 11 % (0-9); NEUT # 2.8 x10^3uL (1.8-7.7); NEUT % 55 % (31-73); PLATELET COUNT 175 x10^3/uL (140-400); RED BLOOD COUNT 6.02 x10^6/uL (4.30-5.70); RED CELL DISTRIBUTION WIDTH 14.9 % (11.5-14.5); WHITE BLOOD COUNT 5.1 x10^3/uL (4.0-11.0)
[2018-03-29 17:53] LABS: ALBUMIN 4.2 g/dL (3.4-5.0); ALBUMIN/GLOBULIN RATIO 1.1 (1.0-1.7); CALCIUM 9.3 mg/dL (8.5-10.1); GFR 98.2; POTASSIUM 3.7 mmol/L (3.5-5.1); TOTAL BILIRUBIN 0.5 mg/dL (0.2-1.0)
--- NOTE | 2018-03-29 18:11 | EKG ---
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
[2018-03-29 18:39] LABS: BILIRUBIN,URINE NEG (NEG); CLARITY,URINE CLEAR; COLOR,URINE YELLOW; GLUCOSE,URINE 100 mg/dL (NEG); NITRITE,URINE NEG (NEG); UROBILINOGEN,URINE 0.2 mg/dL (0.2 mg/dL)
[2018-03-29 18:40] LABS: BACTERIA,URINE 0 /HPF (0-FEW); SQUAMOUS EPITHELIAL CELL,UR FEW /LPF
[2018-03-29 18:59] VITALS: BP 123/83
--- NOTE | 2018-03-29 23:51 | RAD ---
Examination: CHEST PA LATERAL History: tachycardia today Comparison/Correlation: 08/30/2016 portable chest x-ray exam Findings: PA and lateral views of chest were obtained. Heart size and bony vasculature are normal. No infiltrate or effusion. No pneumothorax. Bony structures unremarkable. Impression: No active disease. Electronically signed by: Bird Cantrell MD (03/29/2018 11:47 PM) [facility]
== END 2018-03-29 19:00 | disposition home or self-care (01) ==
LOC: ER 17:01
DX: E86.0 Dehydration (principal); R07.89 Other chest pain; E11.9 Type 2 diabetes mellitus without complications; K21.9 Gastro-esophageal reflux disease without esophagitis
CPT/HCPCS: 36415; 71046; 80053; 81001; 84484; 85025; 87086; 93005; 99284-25; J7030

== ENCOUNTER → 2019-12-04 | Outpatient (CLI) | payer BC ==
[2019-12-04 16:32] LABS: ALBUMIN/GLOBULIN RATIO 1.1 (1.0-1.7); CREATININE 1.1 mg/dL (0.7-1.3); GFR 87.2; POTASSIUM 4.1 mmol/L (3.5-5.1); TOTAL BILIRUBIN 0.2 mg/dL (0.2-1.0); TOTAL PROTEIN 7.6 g/dL (6.4-8.2)
== END ==
LOC: LAB 15:32
PROVIDERS: ATTEND Internal Medicine Cardiovascular Disease
DX: E11.9 Type 2 diabetes mellitus without complications (principal)
CPT/HCPCS: 36415; 80053; 80061

== ENCOUNTER 2021-03-16 00:33 | Emergency (ER) | payer BC ==
[~2021-03-16] VITALS: Ht 172.7 cm; Wt 80.7 kg
[~2021-03-16 00:33] MED LIST changes: +POTA-121 PO; -POTA20TA4 PO
--- NOTE | 2021-03-16 00:42 | PHYS DOC ---
Past History Past Medical History: Diabetes Past Surgical History: No Surgical History Alcohol Use: None Drug Use: None General Adult HPI: HPI: ".. 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 And is never really let up" Patient is a 45 year old MALE who presents with above hx and complaints chest epigastric pain that radiates to his back since this week. Pain is more severe tonight. Patient denies any trauma. Patient denies any bad food. Patient has been vomiting which he attributes to gastroparesis. He only vomited once last 8 hours. Patient recently returned from [place]. Patient has not cyst smoke or drink alcohol. Takes glyburide and Metformin for control of his diabetes patient does take a daily 80 mg aspirin. Patient has had previous episodes of gastroparesis, hypokalemia and hypomagnesium. Patient normally follows with Dr. Mcmahon. Review of Systems: Review of Systems: Constitutional: Denies fever or chills Eyes: Denies change in visual acuity HENT: Denies nasal congestion or sore throat Respiratory: Denies cough or shortness of breath Cardiovascular: Denies chest pain or edema GI: Complaints of epigastric abdominal pain, nausea, vomiting,. Denies bloody stools or diarrhea : Denies dysuria Musculoskeletal: Denies back pain or joint pain Integument: Denies rash Neurologic: Denies headache, focal weakness or sensory changes Endocrine: Denies polyuria or polydipsia Lymphatic: Denies swollen glands Psychiatric: Denies depression or anxiety Family History: Family History: -There is a history of diabetes and hypertension with family. Noncontributory to presentation Current Medications: Current Meds: See nursing for home meds Allergies: Allergies: Allergies Coded Allergies Type Severity Reaction Last Updated Verified No Known Drug Allergies 08/24/16 No Physical Exam: PE: Constitutional: Moderate acute distress, non-toxic appearance. [] HENT: Normocephalic, atraumatic, bilateral external ears normal, oropharynx moist, no oral exudates, nose normal. [] Eyes: PERRLA, EOMI, conjunctiva normal, no discharge. [] Neck: Normal range of motion, no tenderness, supple, no stridor. [] Cardiovascular:Heart rate regular rhythm, no murmur [] Lungs & Thorax: Bilateral breath sounds equal apex auscultation [] Abdomen: Bowel sounds decreased, soft, epigastric tenderness, no masses, no pulsatile masses. Obese. Declined rectal exam at this time. ( Reports no tarry stools). Mild rebound to epigastric area. Skin: Warm, dry, no erythema, no rash. [] Back: No tenderness, no CVA tenderness. [] Extremities: No tenderness, no cyanosis, no clubbing, ROM intact, no edema. No cording appreciated Neurologic: Alert and oriented X 3, normal motor function, normal sensory function, no focal deficits noted. [] Psychologic: Affect anxious, judgement normal, mood normal. [] EKG: EKG: My interpretation EKG shows sinus rhythm at 69 bpm. No acute morphology. Time of EKG is 00 45 minutes My interpretation of second EKG shows a sinus rhythm at 87 bpm mild leftward axis. No acute morphology changes between the 2 EKGs. Time of EKG is 0426 hrs. [] Radiology/Procedures: Radiology/Procedures: [][place] [address] IMAGING REPORT Signed PATIENT: ALIL PAGAN ACCOUNT: [id number] : 1975 LOCATION: ER AGE: 45 SEX: M EXAM STATUS: REG ER ORD. PHYSICIAN: JOSÉ LUIS IQBAL MD REASON: nv pain PROCEDURE: ACUTE ABDOMEN SERIES INDICATION: Reason: nv pain / Spl. Instructions: / History: COMPARISON: Chest x-ray from March [address] abdomen September 2016 IMPRESSION: 3 views of the chest and abdomen obtained. Hypoexpanded lungs without definite focal consolidation. Cardiomediastinal silhouette is unremarkable. Nonspecific bowel gas pattern with some scattered air-fluid levels within the bowel. Could be from liquid stool. Overall gas pattern is not grossly obstructive. Electronically signed by: Viral Perkins MD (03/16/2021 5:17 AM) [id number] DICTATED AND SIGNED BY: VIRAL PERKINS MD DATE: 03/16/21 0515 CC: LORAINE MCMAHON MD; JOSÉ LUIS IQBAL MD ~MTH0 0 Heart Score: C/O Chest Pain: Yes HEART Score for Chest Pain: HEART Score for Chest Pain Response (Comments) Value History Slighlty/Non-Suspicious 0 ECG Normal 0 Age >45 - < 65 1 Risk Factors 1 or 2 Risk Factors 1 Troponin < Normal Limit 0 Total 2 Risk Factors: Risk Factors: DM, Current or recent (<one month) smoker, HTN, HLP, family history of CAD, obesity. Risk Scores: Score 0 - 3: 2.5% MACE over next 6 weeks - Discharge Home Score 4 - 6: 20.3% MACE over next 6 weeks - Admit for Clinical Observation Score 7 - 10: 72.7% MACE over next 6 weeks - Early Invasive Strategies Course & Med Decision Making: Course & Med Decision Making Pertinent Labs and Imaging studies reviewed. (See chart for details) Patient remain on a clear fluid diet only next couple days. No solids no milk products. Must allow bowel rest. Advised may expect an episode of diarrhea based on x-ray findings. Take Pepcid 20 mg twice a day. Tylenol as needed for abdomen pain. Return if any concerns. May take Zofran 8 mg up to 4 times a day for active vomiting. Impression: 1. Epigastric pain 2. History of GERD 3. History of gastroparesis 4. History of diabetes- Glu 141 tonight 5. Hx HTN [] Dragon Disclaimer: Dragon Disclaimer: This electronic medical record was generated, in whole or in part, using a voice recognition dictation system. Departure Departure: Referrals: LORAINE MCMAHON MD (PCP) Scripts Ondansetron Hcl (ZOFRAN) 4 Mg Tablet 8 MG PO QIDPRN PRN for NAUSEA/VOMITING, #30 TAB Prov: JOSÉ LUIS IQBAL MD 03/16/21 Famotidine (PEPCID) 20 Mg Tablet 20 MG PO BID for GERD for 30 Days, #60 TAB Prov: JOSÉ LUIS IQBAL MD 03/16/21 Dragon Disclaimer This chart was dictated in whole or in part using Voice Recognition software in a busy, high-work load, and often noisy Emergency Department environment. It may contain unintended and wholly unrecognized errors or omissions. JOSÉ LUIS IQBAL MD Mar 16, 2021 00:41
[2021-03-16 00:44] VITALS: BP 155/101
[2021-03-16 01:30] LABS: BASO % 1 % (0-3); EOS # 0.1 x10^3/uL (0.0-0.7); EOS % 3 % (0-3); HEMATOCRIT 47.2 % (39.0-53.0); HEMOGLOBIN 14.9 g/dL (13.0-17.5); LYMPH # 1.7 x10^3/uL (1.0-4.8); LYMPH % 46 % (24-48); MEAN CORPUSCULAR HEMOGLOBIN 25 pg (25-35); MEAN CORPUSCULAR HGB CONC 32 g/dL (31-37); MEAN CORPUSCULAR VOLUME 78 fL (79-100); MONO # 0.4 x10^3/uL (0.0-1.1); MONO % 12 % (0-9); NEUT # 1.4 x10^3uL (1.8-7.7); NEUT % 38 % (31-73); PLATELET COUNT 169 x10^3/uL (140-400); RED BLOOD COUNT 6.03 x10^6/uL (4.30-5.70); RED CELL DISTRIBUTION WIDTH 14.9 % (11.5-14.5); WHITE BLOOD COUNT 3.6 x10^3/uL (4.0-11.0)
[2021-03-16] MEDS ORDERED: IV RINGERS SOLUTION,LACTATED 1,000 ML IV SCH (01:30)
[2021-03-16] MEDS ORDERED: FAMOTIDINE 20 MG/2 ML VIAL IVP ONE (01:30)
[2021-03-16] MEDS ORDERED: ONDANSETRON PF 4 MG/2 ML VIAL. IVP ONE (01:30)
[2021-03-16 01:40] LABS: CALCIUM 9.6 mg/dL (8.5-10.1); GFR 96.9; POTASSIUM 4.2 mmol/L (3.5-5.1)
[2021-03-16] MEDS ORDERED: diphenhydrAMINE 50 MG/ML VIAL ONE (01:49)
[2021-03-16] MEDS ORDERED: PROCHLORPERAZINE 10 MG/2 ML VIAL. ONE (01:49)
[2021-03-16 01:54] LABS: ALBUMIN 3.9 g/dL (3.4-5.0); DIRECT BILIRUBIN 0.1 mg/dL (0.0-0.2); MAGNESIUM 1.9 mg/dL (1.8-2.4); TOTAL BILIRUBIN 0.4 mg/dL (0.2-1.0); TOTAL PROTEIN 7.3 g/dL (6.4-8.2)
[2021-03-16] MEDS ORDERED: diphenhydrAMINE 50 MG/ML VIAL IVP ONE (02:30)
[2021-03-16] MEDS ORDERED: PROCHLORPERAZINE 10 MG/2 ML VIAL. IV ONE (02:30)
--- NOTE | 2021-03-16 04:12 | EKG ---
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
--- NOTE | 2021-03-16 05:20 | RAD ---
INDICATION: Reason: nv pain / Spl. Instructions: / History: COMPARISON: Chest x-ray from March [address] abdomen September 2016 IMPRESSION: 3 views of the chest and abdomen obtained. Hypoexpanded lungs without definite focal consolidation. Cardiomediastinal silhouette is unremarkable. Nonspecific bowel gas pattern with some scattered air-fluid levels within the bowel. Could be from li quid stool. Overall gas pattern is not grossly obstructive. Electronically signed by: Franck Ramirez MD (03/16/2021 5:17 AM) [id number]
[2021-03-16] MEDS ORDERED: MORPHINE SULFATE 10 MG/ML SYRINGE. SQ ONE (05:30)
[2021-03-16] MEDS ORDERED: FAMO-63 PO (06:27)
[2021-03-16] MEDS ORDERED: ONDA4TAB7 PO (06:27)
--- NOTE | 2021-03-16 08:06 | EKG ---
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
[2021-03-16 16:53] LABS: THYROID STIM HORMONE (TSH) 0.978 uIU/mL (0.358-3.740)
== END 2021-03-16 07:06 | disposition home or self-care (01) ==
LOC: ER 00:33
DX: R10.13 Epigastric pain (principal); R11.2 Nausea with vomiting, unspecified; K21.9 Gastro-esophageal reflux disease without esophagitis; I10 Essential (primary) hypertension; E11.9 Type 2 diabetes mellitus without complications
CPT/HCPCS: 36415; 74022; 80048; 80061; 80076; 82150; 82550; 83690; 83735; 83880; 84443; 84484; 85025; 85379; 85610; 85730; 93005; 96361; 96372; 96374; 96375; 99285; J0780; J1200; J2270; J2405; J3490; J7120